=== PATIENT | male | born 2000 | race Caucasian/White ===

== ENCOUNTER 2021-10-01 18:22 | Emergency (ER) | payer OTHER ==
[~2021-10-01] VITALS: Ht 193 cm; Wt 86.4 kg
[2021-10-01 18:30] VITALS: TEMP 98.7
[2021-10-01] MEDS ORDERED: BACTRIM DS 8001 TAB PO ×3 (19:27→19:36)
[2021-10-01] MEDS ORDERED: CEPHALEXIN500 M1 PO ×3 (19:27→19:36)
[2021-10-01 19:38] VITALS: BP 132/80; PULSE 84
== END 2021-10-01 19:38 | disposition home or self-care (01) ==
LOC: COL.ER 18:22
DX: L03.116 Cellulitis of left lower limb (principal); Z28.310 Unvaccinated for COVID-19